=== PATIENT | female | born 1995 | race Caucasian/White ===

== ENCOUNTER → 2018-12-14 10:59 | Outpatient (CLI) | payer OTHER, SELFPAY ==
--- NOTE | 2018-12-14 | DI.MRI.S_ITS ---
PROCEDURE: MR LUMBAR SPINE WO CON INDICATIONS: LUMBAR SPINE PAIN TECHNIQUE: Noncontrast sagittal T1 spin echo and T2 fast echo, sagittal STIR, axial T1 and T2 fast spin echo through the lumbar spine. In cases with scoliosis, additional coronal T2 fast spin echo may be performed. COMPARISON: None. FINDINGS: Image quality: Patient motion artifact resulted in multiple repeat imaging attempts. There is patient motion on all axial images provided. Alignment and Curvature: There is normal bony alignment. Bone Marrow: Marrow is of normal overall signal. No acute vertebral body compression fractures. Spinal Cord: Conus medullaris terminates at the T12-L1 level. Visualized cord demonstrates normal signal and size. Paraspinous Soft Tissues: No paravertebral masses. L1-L2: No canal stenosis or foraminal stenosis L2-L3: No canal stenosis or foraminal stenosis L3-L4: No canal stenosis or foraminal stenosis L4-L5: No canal stenosis or foraminal stenosis L5-S1: No canal stenosis or foraminal stenosis IMPRESSION: Unremarkable lumbar spine MRI with no evidence of canal stenosis or foraminal stenosis. Dictated by: Shaq Blanchard M.D. on 12/14/2018 at 13:18 Approved by: Shaq Blanchard M.D. on 12/14/2018 at 13:22
== END ==
PROVIDERS: PCP Family Medicine; Visit Provider Physical Medicine & Rehabilitation Pain Medicine
DX: M54.5 Low back pain (principal)
CPT/HCPCS: 72148

== ENCOUNTER → 2019-06-14 12:26 | Outpatient (CLI) | payer OTHER, SELFPAY ==
[2019-06-14 14:13] LABS: Alanine Aminotransferase 33 IU/L (9-52); Albumin 3.7 g/dL (3.5-5.0); Albumin Globulin Ratio 1.2 (1.0-2.8); Alkaline Phosphatase 96 U/L (38-126); Aspartate Aminotransferase 34 IU/L (14-36); Bilirubin Total 0.4 mg/dL (0.2-1.3); Bilirubin Unconjugated 0.2 mg/dL (0.0-1.1); Globulin 3.1 g/dL (1.7-4.1); HEMOLYSIS < 15 (0-50); Total Protein 6.8 g/dL (6.3-8.2)
[2019-06-18 17:04] LABS: Bile Acids, Total 4 umol/L (< 20)
== END ==
PROVIDERS: Visit Provider Obstetrics & Gynecology
DX: K83.1 Obstruction of bile duct (principal); O26.619 Liver and biliary tract disorders in pregnancy, unspecified trimester
CPT/HCPCS: 36415; 80076; 82239

== ENCOUNTER → 2019-07-06 12:32 | Outpatient (CLI) | payer OTHER, SELFPAY | PROVIDERS: Visit Provider Obstetrics & Gynecology | DX: R82.90 Unspecified abnormal findings in urine (principal) | CPT/HCPCS: 87086 ==

== ENCOUNTER 2019-07-27 12:01 | Observation (INO) | payer OTHER, SELFPAY ==
[2019-07-27] MEDS: NIFEdipine 10 MG CAPSULE PO ×4 (13:04→14:04)
== END 2019-07-27 14:44 | disposition home or self-care (01) ==
PROVIDERS: Admitting Provider Obstetrics & Gynecology; PCP Family Medicine; Visit Provider Obstetrics & Gynecology
DX: O47.03 False labor before 37 completed weeks of gestation, third trimester (principal); O26.23 Pregnancy care for patient with recurrent pregnancy loss, third trimester; Z3A.33 33 weeks gestation of pregnancy
CPT/HCPCS: 59025; 59050; G0378; G0379

== ENCOUNTER 2019-08-08 21:18 | Outpatient (CLI) | payer OTHER, SELFPAY ==
--- NOTE | 2019-08-09 09:23 | PM.OBTRLD ---
Visit Information Visit Information Date of evaluation: 08/08/19 Primary OB Provider: Mia Maurer On-call OB Provider: Jana Johnson Reason for Evaluation: Yes pre-term labor Vital Signs Vital Signs: Blood pressure 116/58, pulse 96, temperature 36.1? [facility] Medical History (Updated 08/09/19 @ 09:26 by Jana Johnson MD) Allergies (Chronic ~2011) Alopecia (Chronic ~2016) Anxiety (Chronic ~2012) Asthma (Chronic ~2013) Cholestasis during (Resolved ~2013) Chronic back pain (Chronic ~2012) Depression (Chronic ~2012) Fractures (Resolved ~2013) Habitual aborter (Acute) Headache (Chronic ~2013) Heavy menstrual period (Chronic ~2002) History of cholestasis during (Acute) History of migraine (Chronic ~2013) History of seizures (Chronic ~2013) Insomnia (Chronic ~2012) Irregular menstrual cycle (Chronic ~2002) Painful menstrual periods (Chronic ~2002) Post traumatic stress disorder (PTSD) (Chronic ~2012) Surgical History (Updated 07/04/19 @ 22:38 by Leena Wong) Anesthesia (Resolved) [place] teeth removed (Resolved ~2011) Family History (Updated 07/04/19 @ 22:41 by Leena Wong) Mother Cancer Brother Mental health problem Sister Mental health problem Grandfather Diabetes mellitus History of heart disease Hyperlipidemia Hypertension Grandmother Diabetes mellitus History of heart disease Hypertension Hyperlipidemia Grandfather Diabetes mellitus History of heart disease Hyperlipidemia Hypertension Grandmother History of heart disease Diabetes mellitus Hyperlipidemia Hypertension Family/Other Mental health problem Review of Systems Review of Systems Narrative: Patient comes in complaining of mild irregular contractions. No leakage of fluid. Good movement. ROS Unobtainable: All systems reviewed & are unremarkable except as noted in HPI and below Evaluation Evaluation Baseline heart rate: 130 Variability: Moderate (11-25) monitor accelerations: Present monitor decelerations: Absent Contraction Frequency (minutes): 8 Uterine Contraction Intensity: Mild Category of Tracing: I Cervical dilation (cm): 1 Cervical effacement (%): 50 station: -3 Diagnosis, Plan/Disposition Final Diagnosis (1) Premature uterine contractions causing threatened premature labor in third trimester: Current Visit: No Status: Acute (2) 34 weeks gestation of : Current Visit: No Status: Acute Plan/Disposition Plan: Patient not in active labor. She is to push fluids and rest. Keep her OB follow-up appointment. OB Disposition: home
== END 2019-08-08 22:56 | disposition home or self-care (01) ==
LOC: OB 08-10 10:48
PROVIDERS: PCP Family Medicine; Visit Provider Specialist
DX: O47.03 False labor before 37 completed weeks of gestation, third trimester (principal); O26.23 Pregnancy care for patient with recurrent pregnancy loss, third trimester; Z3A.34 34 weeks gestation of pregnancy
CPT/HCPCS: 59025; 59050; G0378; G0379

== ENCOUNTER → 2019-08-24 12:11 | Outpatient (CLI) | payer OTHER, SELFPAY ==
[2019-08-25 11:03] LABS: Strep Grp B PCR NEG for Grp B Strep
== END ==
PROVIDERS: PCP Family Medicine; Visit Provider Obstetrics & Gynecology
DX: Z34.83 Encounter for supervision of other normal pregnancy, third trimester (principal); Z3A.37 37 weeks gestation of pregnancy
CPT/HCPCS: 87653

== ENCOUNTER 2019-09-05 19:04 | Inpatient (IN) | payer OTHER, SELFPAY ==
[2019-09-05] MEDS: miSOPROStoL 25 MCG TABLET VAG (20:14)
[2019-09-05 20:45] LABS: Add Manual Diff / Slide Review NO; Basophils Absolute Auto 100 /uL (0-100); Basophils Percent Auto 1.2 % (0-2); Eosinophils Absolute Auto 200 /uL (0-450); Eosinophils Percent Auto 2.7 % (2-4); Hematocrit 31.2 % (36-46); Hemoglobin 9.8 g/dL (12.0-16.0); Lymphocytes Absolute Auto 1900 /uL (1100-4500); Lymphocytes Percent Auto 24.3 % (25-40); Mean Corpuscular HGB Conc 31.3 % (30-36); Mean Corpuscular Hemoglobin 22.4 PG (26-34); Mean Corpuscular Volume 71.7 fL (80-100); Monocytes Absolute Auto 500 /uL (0-900); Monocytes Percent Auto 5.8 % (3-14); Neutrophils Absolute Auto 5300 /uL (1500-7000); Platelet Count 308 X10^3/uL (150-400); Red Blood Cell Count 4.35 X10^6/uL (4.0-5.2); Red Cell Distribution Width 17.5 % (11.6-14.8); White Blood Cell Count 7.9 X10^3/uL (4.5-11.0)
[2019-09-05 23:09] VITALS: BP 114/62
[2019-09-06] MEDS: miSOPROStoL 25 MCG TABLET VAG (00:35)
[2019-09-06] MEDS: LACTATED RINGERS 1,000 ML 100 ML IV ×3 (08:03→14:53)
[2019-09-06] MEDS: OXYTOCIN PREMIX 30 UNIT/500 ML PLAST..BAG IV (08:03)
--- NOTE | 2019-09-06 09:48 | P.HPOB_ITS ---
OB HPI Date/Time Date of admission: 09/06/19 Date Patient Seen: 09/06/19 Time Patient Seen: 09:00 History of Present Condition Chief complaint: : 10 Para: 2 Estimated Date of Delivery: 09/13/19 Estimated Gestational Age (weeks): 39 Narrative: Lorena Dubose is a 24 year old female admitted for induction for maternal discomfort Indications Indication for induction OB: maternal discomfort History of Present care: good care, initiated at week # (8), number of visits (12) and pounds weight gain (26) Dating criteria: LMP confirmed by 1st trimester US Ultrasounds: normal mid trimester US Medical complications: neurological (Migraine headaches, seizures) Preadmission Labs Blood type: O (+) positive -: Antibody screen: negative, GBS status: negative, HBsAG: negative, HIV: negative and RPR/VDLR: negative -: Chlamydia screen: not detected and Gonorrhea screen: not detected -: Rubella: immune and Varicella: immune HCAB: negative PAP: Abnormal Quad screen: Normal 1 hr GTT: 85 Prior (ies) History: See ACOG form Evaluation Evaluation Baseline heart rate: 135 Variability: Moderate (11-25) monitor accelerations: Present monitor decelerations: Early Category of Tracing: I Cervical dilation (cm): 1 Cervical effacement (%): 50 station: -3 Laboratory results: Laboratory Tests 09/05/19 09/05/19 20:30 20:30 WBC 7.9 RBC 4.35 Hgb 9.8 L Hct 31.2 L MCV 71.7 L MCH 22.4 L MCHC 31.3 RDW 17.5 H Plt Count 308 Neut % (Auto) 66.0 Lymph % (Auto) 24.3 L [place] % (Auto) 5.8 Eos % (Auto) 2.7 Baso % (Auto) 1.2 Neut # (Auto) 5300 Lymph # (Auto) 1900 [place] # (Auto) 500 Eos # (Auto) 200 Baso # (Auto) 100 Blood Type O Positive Antibody Screen Negative [facility] Medical History (Updated 08/09/19 @ 09:26 by Jana Johnson MD) Allergies (Chronic ~2011) Alopecia (Chronic ~2016) Anxiety (Chronic ~2012) Asthma (Chronic ~2013) Cholestasis during (Resolved ~2013) Chronic back pain (Chronic ~2012) Depression (Chronic ~2012) Fractures (Resolved ~2013) Habitual aborter (Acute) Headache (Chronic ~2013) Heavy menstrual period (Chronic ~2002) History of cholestasis during (Acute) History of migraine (Chronic ~2013) History of seizures (Chronic ~2013) Insomnia (Chronic ~2012) Irregular menstrual cycle (Chronic ~2002) Painful menstrual periods (Chronic ~2002) Post traumatic stress disorder (PTSD) (Chronic ~2012) Surgical History (Updated 07/04/19 @ 22:38 by Leena Wong) Anesthesia (Resolved) [place] teeth removed (Resolved ~2011) Family History (Updated 07/04/19 @ 22:41 by Leena Wong) Mother Cancer Brother Mental health problem Sister Mental health problem Grandfather Diabetes mellitus History of heart disease Hyperlipidemia Hypertension Grandmother Diabetes mellitus History of heart disease Hypertension Hyperlipidemia Grandfather Diabetes mellitus History of heart disease Hyperlipidemia Hypertension Grandmother History of heart disease Diabetes mellitus Hyperlipidemia Hypertension Family/Other Mental health problem Social History Smoking Status: Former smoker Meds Home Medications and Allergies Home Medications Medication Instructions Recorded Confirmed Type prenat.vits,farhan,jxk-badz-dawez 1 tab PO DAILY 06/13/19 09/05/19 History Allergies Allergy/AdvReac Type Severity Reaction Status Date / Time lidocaine Allergy Severe Anaphylaxis Verified 09/06/19 07:52 Review of Systems Review of Systems Narrative: Patient denies headaches, scotomata, epigastric pain. She has had good movement. No rupture membranes. ROS Unobtainable: All systems reviewed & are unremarkable except as noted in HPI and below Exam Vital Signs (past 8 hours): Blood pressure 114/62, pulse of 92, temperature 97.9? Narrative Exam Narrative: HEENT exam within normal limits. Lungs are clear to auscultation percussion. Heart is regular rate and rhythm no S3-S4 or murmurs. Abdomen is gravid. is vertex. Extremities without edema and nontender. Objective Labs Result Diagrams: 09/05/19 20:30 Labs: Laboratory Results - last 24 hr 09/05/19 09/05/19 20:30 20:30 WBC 7.9 RBC 4.35 Hgb 9.8 L Hct 31.2 L MCV 71.7 L MCH 22.4 L MCHC 31.3 RDW 17.5 H Plt Count 308 Neut % (Auto) 66.0 Lymph % (Auto) 24.3 L [place] % (Auto) 5.8 Eos % (Auto) 2.7 Baso % (Auto) 1.2 Neut # (Auto) 5300 Lymph # (Auto) 1900 [place] # (Auto) 500 Eos # (Auto) 200 Baso # (Auto) 100 Blood Type O Positive Antibody Screen Negative Assessment and Plan Assessment and Plan Assessment and Plan narrative: 39 week gestation admitted for induction for maternal discomfort. Due to the poor Kirk score she was started with Cytotec on 09/05/2019 with beginning Pitocin on 09/06/19. Anticipate vaginal delivery. Patient is requesting tubal ligation . She understands that this is a permanent procedure. Risk of damage to internal structures, pain, infection, ectopic risks and signs and symptoms discussed with the patient. Time Spent with Patient Total time spent with greater than 50% in coordination of care (as documented) at patient's floor/unit and/or counseling patient:: 15-24 minutes
[2019-09-06] MEDS: FENT 2MCG/ML BUPIV 0.125% EPI 200 MCG/100 ML PLAST..BAG 12 MCG EPIDURAL (12:45)
--- NOTE | 2019-09-06 16:56 | PM.OBPRVD ---
Labor & Delivery Delivery date: 09/06/19 Intrapartal events: None Cervical ripening method: per misoprostal protocol Induction method: per pitocin protocol Delivery monitor: external FHT and external uterine Route of delivery: L&D Laceration Description: None Estimated blood loss (mL): 100 Anesthesia type: Epidural Narrative: Patient was admitted for induction for maternal discomfort. She received Prostin followed by Pitocin. She received an epidural catheter for pain control. heart tones category 1 to category 2 throughout labor. Patient delivered spontaneously, over an intact perineum. Female infant was placed on maternal abdomen and the cord was clamped and cut after pulsation stopped. Cord bloods were obtained. The placenta delivered spontaneously, intact, with 3 vessels. There were no cervical, vaginal, or perineal tears. Estimated blood loss 100 cc. Both infant mother doing well. Patient is planning on a tubal ligation tomorrow. Baby 1: Infant gender: Female Presentation: vertex position: Right Occiput Anterior Placenta delivery description: Spontaneous cord vessel description: 3 Vessels score (1 min): 9 score (5 min): 9 Plan for aftercare: Routine care
[2019-09-06] MEDS: KETOROLAC 30 MG/ML VIAL IV (22:06)
--- NOTE | 2019-09-07 | PATH_ITS ---
[facility] Accession Number: [id number] . 01 Material submitted: . fallopian tube - SEGMENT OF BILATERAL FALLOPIAN TUBES . 01 Clinical history: . . 02 Diagnosis: Segment Of Bilateral Fallopian Tubes, Bilateral Tubal Ligation: Complete cross-sections of segments of fallopian tube x2. Negative for cytologic atypia or malignancy. Acute salpingitis is present. MRV 09/09/2019 1039 Local . 02 Electronically signed: . Annamarie Malave MD, Pathologist NPI- [id number] . 01 Gross description: . Received one formalin-filled container labeled with the patient's name and labeled segment bilateral fallopian tubes. The specimen consists of two possibly fimbriated, cylindrical-shaped portions of tissue. The first measures 1.8 x 0.7 x 0.7 cm. The specimen is inked blue, sectioned into multiple pieces, and entirely submitted in cassette A1. The second piece measures 1.8 x 0.8 x 0.4 cm. The specimen is inked blue, sectioned into multiple pieces, and entirely submitted in cassette A2. ([id number]) /[facility] 09/08/2019 0242 Local . 02 Pathologist provided ICD-10: Z30.2 . 02 CPT . 931536 Performed at: [address] [facility] [address], [place], [place] [id number] MD Bryon Ba MD Phone: [phone] Performed at: 02 [facility] [address] [place], [place] [id number] MD Courtney Quinteros MD Phone: [phone]
[2019-09-07 06:51] LABS: Add Manual Diff / Slide Review NO; Basophils Absolute Auto 100 /uL (0-100); Basophils Percent Auto 0.4 % (0-2); Eosinophils Absolute Auto 300 /uL (0-450); Eosinophils Percent Auto 2.1 % (2-4); Hematocrit 27.6 % (36-46); Hemoglobin 8.7 g/dL (12.0-16.0); Lymphocytes Absolute Auto 2100 /uL (1100-4500); Lymphocytes Percent Auto 16.6 % (25-40); Mean Corpuscular HGB Conc 31.6 % (30-36); Mean Corpuscular Hemoglobin 22.7 PG (26-34); Mean Corpuscular Volume 71.9 fL (80-100); Monocytes Absolute Auto 800 /uL (0-900); Monocytes Percent Auto 6.4 % (3-14); Neutrophils Absolute Auto 9300 /uL (1500-7000); Neutrophils Percent Auto 74.5 % (50-75); Platelet Count 242 X10^3/uL (150-400); Red Blood Cell Count 3.84 X10^6/uL (4.0-5.2); Red Cell Distribution Width 17.9 % (11.6-14.8); White Blood Cell Count 12.5 X10^3/uL (4.5-11.0)
[2019-09-07] MEDS: KETOROLAC 30 MG/ML VIAL IV ×2 (09:10→18:29)
[2019-09-07] MEDS: LACTATED RINGERS 1,000 ML 100 ML IV (09:11)
--- NOTE | 2019-09-07 13:36 | P.PNOB_ITS ---
Subjective - OB Subjective Patient comments: no complaints and tolerating diet Hensley baby status: doing well feeding status: breast and bottle feeding Date Patient Seen: 09/07/19 Time Patient Seen: 09:00 Interval history: Patient is status post vaginal delivery doing well. She is [employer]AD[employer] O for tubal ligation. Exam Vital Signs (past 8 hours): Blood pressure 108/77, pulse 77, temperature 98? Narrative Exam Narrative: Abdomen is soft, nontender. Uterus is firm, at U, nontender. Mild lochia. Extremities without edema and nontender. Objective Labs Result Diagrams: 09/07/19 06:30 Labs: Laboratory Results - last 24 hr 09/07/19 06:30 WBC 12.5 H D RBC 3.84 L Hgb 8.7 L Hct 27.6 L MCV 71.9 L MCH 22.7 L MCHC 31.6 RDW 17.9 H Plt Count 242 Neut % (Auto) 74.5 Lymph % (Auto) 16.6 L [place] % (Auto) 6.4 Eos % (Auto) 2.1 Baso % (Auto) 0.4 Neut # (Auto) 9300 H Lymph # (Auto) 2100 [place] # (Auto) 800 Eos # (Auto) 300 Baso # (Auto) 100 Assessment & Plan Assessment and Plan (1) Vaginal delivery: Status: Acute Current Visit: Yes (2) Acute blood loss anemia: Status: Acute Current Visit: Yes (3) Request for sterilization: Status: Acute Current Visit: Yes Plan day: 1 plan OB: routine care and other (Tubal ligation later today) Comments: Patient is doing well . She is on sure if she will go home today after her tubal ligation or tomorrow Time Spent With Patient Time: Total time spent is greater than 50% in coordination of care (as documented) at patient's floor/unit and/or counseling patient: Time with patient: less than 15 minutes
[2019-09-07] MEDS: CEFAZOLIN 2 GM/100 ML FROZ.PIGGY IV (13:42)
--- NOTE | 2019-09-07 14:00 | SUR.OPER ---
Supine on padded OR bed, head on pillow, arms secured on padded arm boards at <90 degrees abduction, legs uncrossed, safety belt at thigh, tape over blanket over lower legs.
[2019-09-07 14:19] VITALS: BP 87/45; PULSE 80; RESP 12; TEMP 36.3; O2SAT 89
[2019-09-07 14:25] VITALS: BP 95/51; PULSE 90; RESP 16; O2SAT 95
[2019-09-07 14:32] VITALS: BP 91/58; PULSE 88; RESP 16; O2SAT 96
[2019-09-07 14:37] VITALS: BP 91/60; PULSE 88; RESP 16; TEMP 37; O2SAT 96
[2019-09-07 14:47] VITALS: BP 97/71; PULSE 92; RESP 16; TEMP 36.5; O2SAT 96
--- NOTE | 2019-09-07 14:53 | PM.OP.1 ---
Operative Date/Time/Diagnoses Date of procedure: 09/07/19 Time of procedure: 14:30 Pre-op diagnosis: Wish for sterilization Post-op diagnosis: same Procedure & Clinicians Procedure: Mini laparotomy tubal ligation Same procedure as scheduled: Yes Indications: Undesired fertility Surgeon: Jana Johnson Click Yes if Unassisted: Yes Anesthesia Type: General Operative Notes Findings: Normal fallopian tubes bilaterally Closure Type: primary Specimen(s): other (Segments of each fallopian tube) Estimated Blood Loss (mL): 1 Blood products transfused: none Procedure in detail: Patient is brought to the operating room where she underwent general anesthesia. She was in a supine position and prepped and draped in the usual sterile fashion. A check system was reviewed with the staff in the room prior to the procedure. She had 2 g of Ancef and prior to beginning of the procedure. She had warming with blankets. She had pulsatile stockings in place and functional. An incision was made in the umbilicus with the scalpel. The incision was carried down the fascial layer which was incised transversely. The peritoneum was entered bluntly. The right fallopian tube was grasped with the Marlene and a section of the tube was tied off x2 and sent to pathology. Same procedure was performed on the left side. The fascial layer was closed with 0 Vicryl suture. The skin was closed with 4 0-Monocryl. Estimated blood loss was less than a cc. Patient went to recovery room in good condition. Counts of instruments and sponges were correct. Complications: none Post-operative Condition: stable Disposition: other ( center) Plan for aftercare: Routine and tubal ligation care
--- NOTE | 2019-09-07 15:02 | SUR.PHASEI ---
Transfer note: patient stable for transfer to . Family at bedside. VSS on arrival. Dressing CDI. Pain level 3/10. No nausea. Tolerating po. handoff report given. Lyla Recinos
[2019-09-07] MEDS: HYDROCODONE/ACET 5/325 TABLET 2 TAB PO ×2 (15:37→16:20)
[2019-09-07] MEDS: SIMETHICONE 80 MG TABLET PO (18:28)
[2019-09-07] MEDS: OXYCODONE/ACETAMINOPHEN 5/325 TABLET 2 TAB PO (20:21)
[2019-09-08] MEDS: KETOROLAC 30 MG/ML VIAL IV (01:19)
[2019-09-08] MEDS: OXYCODONE/ACETAMINOPHEN 5/325 TABLET 2 TAB PO (01:20)
--- NOTE | 2019-09-08 07:28 | PM.OBDS.1 ---
Discharge Providers Provider Date of admission: 09/05/19 19:04 Discharge Date: 09/08/19 Primary care physician: Virginia Lozano DO Consults: 09/07/19 16:50 Consult to Learn [employer] Instructor Routine Comment: Discharge provider: Jana Johnson MD Summary Hospital Course Date Patient Seen: 09/08/19 Time Patient Seen: 08:44 Hospital Course: Patient was admitted for induction at 39 weeks for maternal discomfort. She had a spontaneous vaginal delivery. She requested a tubal ligation. She and the did well . Peripartum Data Infant Delivery Method: Natural Vaginal Laceration description: None Procedures: Prostin followed by Pitocin induction, epidural catheter, spontaneous vaginal delivery, tubal ligation complications: none 1: Gender: Female Disposition of : home Discharge Diagnosis (1) Vaginal delivery: Status: Acute (2) Acute blood loss anemia: Status: Acute (3) Request for sterilization: Status: Acute Status at Discharge Cognitive/behavioral status at discharge: oriented Functional status at discharge: independent ambulation Overall status at discharge: patient is progressing back to baseline Time Spent with Patient Time attestation: Total time spent providing and/or coordinating discharge services: Time spent: Less than 30 minutes Objective Labs Result Diagrams: 09/07/19 06:30 Exam Vital Signs (past 8 hours): Blood pressure 106/71, pulse 75, temperature 97.9? Oxygen Delivery Method Room Air Oxygen Flow Rate 5 Narrative Exam Narrative: Patient's abdomen is soft, nontender. Her incision is clean, dry, intact without evidence of infection. Uterus is firm, at U, nontender. Mild lochia. Extremities without edema and nontender. Patient is O positive and rubella immune. She received the Tdap in the 3rd trimester Discharge Plan Discharge Plan Patient Disposition: Home Discharge orders & Medications Prescriptions: New oxycodone-acetaminophen 5-325 mg Tablet 2 tab PO Q4HR PRN (Reason: Pain, Severe (7-10)) Qty: 20 RF: 0 ibuprofen 600 mg Tablet 600 mg PO Q6HR PRN (Reason: Pain, Mild (1-3)) Qty: 30 RF: 0 docusate sodium 100 mg tablet 100 mg PO DAILY Qty: 20 RF: 0 ferrous gluconate 324 mg (38 mg iron) tablet 324 mg PO DAILY Qty: 30 RF: 0 Continued prenat.vits,farhan,vyj-edug-ionfu tablet 1 tab PO DAILY RF: 0 Follow up/Referrals: Mia Maurer MD [Physician] - 6 Weeks (1 weeks incsion check ) Virginia Lozano DO [Primary Care Provider] - Diet/Activity/Treatments Diet: Regular Activity: Nothing in vagina for 6 weeks Skin/Wound/Dressing Care Report to your healthcare provider any signs of infection, such as:: chills, fever, increased pain and unusual redness Discharge Data Primary Care Provider: Virginia Lozano
[2019-09-08 09:15] VITALS: BP 112/63; PULSE 88; RESP 16; TEMP 36.7
== END 2019-09-08 10:49 | disposition home or self-care (01) | DRG 798 ==
PROVIDERS: Admitting Provider Specialist; PCP Family Medicine; Visit Provider Specialist
PROC: 0UB70ZZ Excision of Bilateral Fallopian Tubes, Open Approach (ICD-10-PCS; CPT 58605; principal; 2019-09-07 14:00)
DX: O26.813 Pregnancy related exhaustion and fatigue, third trimester (principal); Z37.0 Single live birth; Z3A.39 39 weeks gestation of pregnancy; Z30.2 Encounter for sterilization
CPT/HCPCS: 01967; 36415; 58605; 59050; 59200; 59400; 59409; 85025; 86850; 86900; 86901; G0379; J0690; J1885; J2250; J2590; J2704; J3010